=== PATIENT | female | born 1965 ===

== ENCOUNTER 2016-09-14 14:58 | Emergency (ER) | payer MEDICAID ==
[2016-09-14 15:15] VITALS: O2SAT 97
[2016-09-14] MEDS ORDERED: Sodium Chloride 0.9% 1,000 ML IV ONE (16:08)
[2016-09-14 16:46] LABS: BASO # 0.1 K/uL (0.0-0.2); EOS # 0.1 K/uL (0.0-0.7); HEMATOCRIT 42.9 % (34.0-47.0); LYMPH # 1.3 K/uL (1.0-4.3); LYMPH % 12.6 % (20.0-40.0); MEAN CELL VOLUME 84.8 fL (81.0-99.0); MEAN CORPUSCULAR HEMOGLOBIN 27.8 pg (27.0-31.0); MEAN CORPUSCULAR HGB CONC 32.8 g/dL (33.0-37.0); MEAN PLATELET VOLUME 8.4 fL (7.2-11.7); MONO # 0.2 K/uL (0.0-0.8); MONO % 2.3 % (0.0-10.0); RED CELL DISTRIBUTION WIDTH 12.9 % (11.5-14.5); WHITE BLOOD COUNT 10.3 K/uL (4.8-10.8)
--- NOTE | 2016-09-14 16:48 | C.PDOC ---
History Of Present Illness <Kristin Brooks - Last Filed: 09/14/16 18:53> <Dinesh Moreno - Last Filed: 09/14/16 19:38> 50yo female, presents to the emergency department with complaints of left-lower quadrant abdominal pain since 03:00 this morning. Associated symptoms include nausea, non-bilious/non-bloody vomiting and soft stool. Patient denies any medication to help relieve symptoms. No chest pain, cough, shortness of breath, fevers, dizziness, or any other associated symptoms. No other complaints at this time. (Kristin Brooks) History Per: Patient History/Exam Limitations: no limitations Onset/Duration Of Symptoms: Days Current Symptoms Are (Timing): Still Present Severity: Moderate Location Of Pain/Discomfort: LLQ <Kristin Brooks - Last Filed: 09/14/16 18:53> <Dinesh Moreno - Last Filed: 09/14/16 19:38> Time Seen by Provider: 09/14/16 15:32 Chief Complaint (Nursing): Abdominal Pain Past Medical History Reviewed: Historical Data, Nursing Documentation, Vital Signs - Medical History PMH: Depression, HTN Family History: States: Unknown Family Hx - Social History Hx Alcohol Use: No Hx Substance Use: No - Immunization History Hx Tetanus Toxoid Vaccination: Yes Hx Influenza Vaccination: Yes Hx Pneumococcal Vaccination: No <SaraisofyaKristin barron - Last Filed: 09/14/16 18:53> Vital Signs: Last Vital Signs Temp 98 F 09/14/16 18:44 Pulse 86 09/14/16 18:44 Resp 20 09/14/16 18:44 BP 138/82 09/14/16 18:44 Pulse Ox 97 09/14/16 18:54 Review Of Systems Except As Marked, All Systems Reviewed And Found Negative. Constitutional: Negative for: Fever, Chills Cardiovascular: Negative for: Chest Pain, Palpitations Respiratory: Negative for: Cough, Shortness of Breath Gastrointestinal: Positive for: Nausea, Vomiting, Abdominal Pain, Diarrhea. Negative for: Melena, Hematochezia, Hematemesis, Rectal Pain Musculoskeletal: Negative for: Back Pain Skin: Negative for: Rash Neurological: Negative for: Weakness, Numbness, Headache, Dizziness <SaraiKristin llanes - Last Filed: 09/14/16 18:53> Physical Exam - Physical Exam Appears: Non-toxic, No Acute Distress Skin: Warm, Dry, No Rash Head: Atraumatic, Normacephalic Eye(s): bilateral: Normal Inspection, PERRL, EOMI Nose: Normal Oral Mucosa: Moist Lips: Normal Appearing Neck: Normal ROM Cardiovascular: Rhythm Regular Respiratory: Normal Breath Sounds, No Accessory Muscle Use Gastrointestinal/Abdominal: Soft, Tenderness (LLQ, MILD), No Guarding, No Rebound Extremity: Normal ROM Neurological/Psych: Oriented x3, Normal Speech <Kristin Brooks - Last Filed: 09/14/16 18:53> ED Course And Treatment - Laboratory Results Result Diagrams: 09/14/16 16:42 09/14/16 16:42 O2 Sat by Pulse Oximetry: 97 Progress Note: Bloodwork, CT Abd/Pel and UA ordered and reviewed. Patient treated with Pepcid, IVF, Zofran and Toradol. Patient feels better, on re- evaluation, abdomen is soft and non-tender. Patient will be discharged for outpatient f/u with PMD/GI. All questions answered and pt is agreeable with plan to discharge. <Kristin Brooks - Last Filed: 09/14/16 18:53> - Laboratory Results Result Diagrams: 09/14/16 16:42 09/14/16 16:42 <Dinesh Moreno - Last Filed: 09/14/16 19:38> Disposition - Disposition Disposition Time: 18:54 <Kristin Brooks - Last Filed: 09/14/16 18:53> Counseled Patient/Family Regarding: Diagnosis - Disposition Disposition Time: 19:35 - POA Present On Arrival: None <Dinesh Moreno - Last Filed: 09/14/16 19:38> - Disposition Referrals: Deb Ttutle MD [Staff Provider] - [facility] [Outside] Disposition: HOME/ ROUTINE Condition: STABLE Prescriptions: Tamsulosin [Flomax] 0.4 mg PO DAILY #7 cap oxyCODONE/Acetaminophen [Percocet 5/325 mg Tab] 1 ea PO Q4 #20 tab Ondansetron ODT [Zofran ODT] 1 odt PO BID PRN #6 odt PRN Reason: Nausea/Vomiting Instructions: Renal Colic (ED) - Clinical Impression Clinical Impression: Renal colic - Scribe Statement The provider has reviewed the documentation as recorded by the Scribe <Kristin Brooks - Last Filed: 09/14/16 18:53> <Dinesh Moreno - Last Filed: 09/14/16 19:38> - Scribe Statement Mauri Rodas All medical record entries made by the Scribe were at my direction and personally dictated by me. I have reviewed the chart and agree that the record accurately reflects my personal performance of the history, physical exam, medical decision making, and the department course for this patient. I have also personally directed, reviewed, and agree with the discharge instructions and disposition. (Kristin Brooks) Physician Patient Turnover Patient Signed Over To: Dinesh Moreno Handoff Comments: pending CT and reevaluation <Kristin Brooks - Last Filed: 09/14/16 18:53>
[2016-09-14] MEDS ORDERED: Sodium Chloride 0.9% 1,000 ML ONE (16:50)
[2016-09-14 16:54] LABS: CHLORIDE 94 mmol/L (98-107)
[2016-09-14 16:55] LABS: POTASSIUM 3.5 mmol/L (3.6-5.2); RBC URINE 84 /hpf (0-3); SODIUM 139 mmol/L (132-148); URINE BACTERIA RARE (<OCC); URINE BILIRUBIN NEGATIVE (NEGATIVE); URINE BLOOD 2+ (NEGATIVE); URINE COLOR Yellow (YELLOW); URINE GLUCOSE (UA) NORMAL (Normal); URINE KETONE NEGATIVE (NEGATIVE); URINE LEUKOCYTE ESTERASE NEG Leu/uL (Negative); URINE PROTEIN NEGATIVE (NEGATIVE); URINE UROBILINOGEN NORMAL mg/dL (0.2-1.0); WBC URINE 3 /hpf (0-5)
[2016-09-14 16:57] LABS: BILIRUBIN,TOTAL 0.4 mg/dL (0.2-1.3); GFR AFRICAN-AMERICAN > 60
[2016-09-14 16:58] LABS: ALB/GLOB RATIO 1.1 (1.0-2.1); ALKALINE PHOSPHATASE 94 U/L (38-126); ALT/SGPT 43 U/L (9-52); AST/SGOT 47 U/L (14-36); BLOOD UREA NITROGEN 10 mg/dL (7-17); CALCIUM 9.3 mg/dl (8.6-10.4); CARBON DIOXIDE 28 mmol/L (22-30); GLUCOSE,RANDOM 123 mg/dL (65-105); TOTAL PROTEIN 8.9 g/dL (6.3-8.3)
[2016-09-14] MEDS ORDERED: Iodixanol 320 MG/ML 100 ML BOTTLE IV ONE (17:41)
[2016-09-14 18:46] VITALS: BP 138/82; PULSE 86; RESP 20; TEMP 98
--- NOTE | 2016-09-14 19:20 | CT ---
EXAM: CT Abdomen and Pelvis With Intravenous Contrast CLINICAL HISTORY: 50 years old, female; Pain and signs and symptoms; Vomiting; Abdominal pain; Generalized; Additional info: Abd pain TECHNIQUE: Axial computed tomography images of the abdomen and pelvis with intravenous contrast. Left CT exam was performed using one or more of the following dose reduction techniques: automated exposure control, adjustment of the mA and/or kV according to patient size, and/or use of iterative reconstruction technique. Coronal and sagittal reformatted images were created and reviewed. CONTRAST: 100 mL of [id number] administered intravenously. EXAM DATE/TIME: 09/14/2016 4:34 PM COMPARISON: No relevant prior studies available. FINDINGS: LOWER THORAX: Incidental 1.5 x 0.5 cm right breast nodule, image 14/series 2, which has well-defined margins and is likely solid. This could represent a lymph node but it is indeterminate on this exam. Recommend further evalation with mammography and/or breast ultrasound, on a nonemergent basis. ABDOMEN: LIVER: Fatty infiltration of the liver. GALLBLADDER AND BILE DUCTS: No CT evidence of acute cholecystitis. No evidence of significant biliary ductal dilatation. PANCREAS: No CT evidence of acute pancreatitis. SPLEEN: No acute abnormality of the spleen identified. ADRENALS: No acute abnormality of the adrenal glands identified. KIDNEYS AND URETERS: 5 mm obstructing stone in the left proximal ureter, image 80/series 3, causing moderate left hydroureteronephrosis, as well as left urothelial thickening.. Tiny, nonobstructing right renal stone. Multiple low density lesions in the kidneys bilaterally, most likely representing cysts. The largest of these measures 1.6 cm. STOMACH AND BOWEL: No acute abnormality of the stomach or duodenum identified. No evidence of small bowel obstruction. No acute abnormality of the colon identified. APPENDIX: Appendix is seen, and is within normal limits in appearance. PELVIS: BLADDER: No acute abnormality of the bladder identified. REPRODUCTIVE:No acute abnormality of the reproductive organs is seen. No acute abnormality of the uterus identified. No evidence of large adnexal masses. ABDOMEN and PELVIS: INTRAPERITONEAL SPACE: No evidence of free intraperitoneal air or fluid. BONES/JOINTS: No acute fractures or other acute bony abnormality noted. SOFT TISSUES: No acute abnormality of the visualized soft tissues is seen. VASCULATURE: No evidence of abdominal aortic aneurysm. No evidence of periaortic hemorrhage. LYMPH NODES: No evidence of diffuse pathologic lymphadenopathy. IMPRESSION: - 5 mm obstructing stone in the left proximal ureter. - Otherwise, no evidence of significant acute process. - Incidental breast nodule, as described. See recommendations above. - Fatty infiltration of the liver. - See above for remaining findings.
== END 2016-09-14 19:52 | disposition home or self-care (01) ==
LOC: C.ER 14:58
DX: N13.2 Hydronephrosis with renal and ureteral calculous obstruction (principal)
CPT/HCPCS: 74177; 80053; 81001; 83690; 85025; 96361; 96374; 96375; 99285; J1885; J2405; J7040; Q9967

== ENCOUNTER 2016-10-04 17:51 | Emergency (ER) | payer MEDICAID ==
[2016-10-04 17:56] VITALS: TEMP 98
[2016-10-04 18:22] LABS: RBC URINE 1 /hpf (0-3); URINE BACTERIA OCC (<OCC); URINE BILIRUBIN NEGATIVE (NEGATIVE); URINE BLOOD 3+ (NEGATIVE); URINE COLOR Straw (YELLOW); URINE GLUCOSE (UA) NORMAL (Normal); URINE KETONE NEGATIVE (NEGATIVE); URINE LEUKOCYTE ESTERASE NEG Leu/uL (Negative); URINE PROTEIN NEGATIVE (NEGATIVE); URINE UROBILINOGEN NORMAL mg/dL (0.2-1.0); WBC URINE 1 /hpf (0-5)
[2016-10-04] MEDS ORDERED: Sodium Chloride 0.9% 1,000 ML IV STA (18:30)
--- NOTE | 2016-10-04 18:33 | C.PDOC ---
History Of Present Illness 50 y/o F c PMHx kidney stones p/w L flank pain x 3 weeks. Patient was in this ER for the same pain, found to have 5mm obstructing stone in L ureter and discharged on Percocet. Also taking ibuprofen. Pain has persisted. She denies fever, vomiting, dyspnea. She followed up with PMD and is awaiting follow up with urology. Time Seen by Provider: 10/04/16 18:23 Chief Complaint (Nursing): Abdominal Pain Past Medical History Vital Signs: Last Vital Signs Temp 98.0 F 10/04/16 17:55 Pulse 71 10/04/16 17:55 Resp 19 10/04/16 17:55 BP 146/90 10/04/16 17:55 Pulse Ox 99 10/04/16 20:19 - Medical History PMH: Depression, HTN Family History: States: Unknown Family Hx - Social History Hx Alcohol Use: No Hx Substance Use: No - Immunization History Hx Tetanus Toxoid Vaccination: Yes Hx Influenza Vaccination: Yes (3 months ago) Hx Pneumococcal Vaccination: No Review Of Systems Except As Marked, All Systems Reviewed And Found Negative. Constitutional: Negative for: Fever Cardiovascular: Negative for: Chest Pain Respiratory: Negative for: Shortness of Breath Physical Exam - Physical Exam Additional Physical Exam Comments: Constitutional: No acute distress. Head: Normocephalic. Atraumatic. Eyes: PERRL. ENT: Moist mucous membranes. Neck: Supple. Cardiovascular: Regular rate. Radial pulse 2+ bilaterally. Chest: No tenderness. Respiratory: Clear to auscultation bilaterally. GI: Soft. Nontender. Nondistended. Back: L CVA tenderness. Musculoskeletal: No tenderness or swelling of extremities. Skin: No rash. Neurologic: Alert, no focal deficit. ED Course And Treatment - Laboratory Results Result Diagrams: 10/04/16 18:38 10/04/16 18:38 O2 Sat by Pulse Oximetry: 99 Medical Decision Making Medical Decision Making: Morphine for pain, recheck CT. CT Abdomen/Pelvis EXAM: CT Abdomen and Pelvis Without Intravenous Contrast CLINICAL HISTORY: The patient is a 50 years old, female; Signs and symptoms; Other: Left sided flank pain; Patient HX: History of kidney stones; Additional info: L flank pain Facility exam id and description: [id number] abd pelvis w/o po or iv cont TECHNIQUE: Axial computed tomography images of the abdomen and pelvis without intravenous contrast. This CT exam was performed using one or more of the following dose reduction techniques : automated exposure control, adjustment of the mA and/or kV according to patient size, and/ or use of iterative reconstruction technique. Coronal and sagittal reformatted images were created and reviewed. COMPARISON: CT - ABD PELVIS IV CONTRAST ONLY 09/14/2016 6:29:00 PM FINDINGS: LOWER THORAX: No acute findings. ABDOMEN: LIVER: Mild fatty infiltration of the liver with some focal fatty sparing around the gallbladder fossa. GALLBLADDER AND BILE DUCTS: Unremarkable. No calcified stones. No ductal dilation. PANCREAS: Unremarkable. No ductal dilation. SPLEEN: Unremarkable. No splenomegaly. ADRENALS: Unremarkable. No mass. KIDNEYS AND URETERS: Moderate left obstructive uropathy, secondary to a 5.0 x 4.3 mm calculus within the distal left pelvic ureter, approximately 2 cm above the left ureterovesical junction. The calculus is seen on image 74 of series 2. The calculus may be the same calculus that was previously seen in the proximal left ureter on the prior CT exam. A tiny nonobstructing calculus is additionally seen in the mid-lower pole right kidney on image 41 of series 2. There is a 1.8 x 1.8 cm hypodense mass, likely a cyst, in the lateral cortex mid-pole left kidney. STOMACH AND BOWEL: Unremarkable. No obstruction. No mucosal thickening. APPENDIX: No findings to suggest acute appendicitis. PELVIS: BLADDER: Unremarkable. No stones. REPRODUCTIVE: Unremarkable as visualized. ABDOMEN and PELVIS: INTRAPERITONEAL SPACE: Unremarkable. No free air. No significant fluid collection. BONES/JOINTS: No acute fracture. No dislocation. SOFT TISSUES: A small periumbilical midline ventral hernia is present, containing fat only. VASCULATURE: Unremarkable. No abdominal aortic aneurysm. LYMPH NODES: Unremarkable. No enlarged lymph nodes. IMPRESSION: 1. Moderate left obstructive uropathy, secondary to a 5.0 x 4.3 mm calculus within the distal left pelvic ureter, approximately 2 cm above the left ureterovesical junction. The calculus is seen on image 74 of series 2. The calculus may be the same calculus that was previously seen in the proximal left ureter on the prior CT exam. 2. A tiny nonobstructing calculus is additionally seen in the mid-lower pole right kidney on image 41 of series 2. 3. There is a 1.8 x 1.8 cm hypodense mass, likely a cyst, in the lateral cortex mid-pole left kidney. 4. Mild fatty infiltration of the liver with some focal fatty sparing around the gallbladder fossa. 5. A small periumbilical midline ventral hernia is present, containing fat only. Patient's pain controlled. CT shows stone without movement. Discussed case with Dr. Yoo, urology plant operations vice president who states patient to call him Thursday for appointment. In the meantime, continue Percocet, Ibuprofen, Flomax, 1 dose ceftriaxone here and Ceftin BID at home, lemondae half gallon per day, and KUB obtained at his request prior to discharge. Disposition Discussed With Dr.: Aleksandr Yoo Doctor Will See Patient In The: Office - Disposition Referrals: Aleksandr Yoo MD [Staff Provider] - Disposition Time: 19:30 Condition: STABLE Additional Instructions: Call Dr. Yoo's office on Thursday after 10:30 AM. Prescriptions: Cefuroxime Axetil [Ceftin] 10 ml PO BID #140 ml Tamsulosin [Flomax] 0.4 mg PO DAILY #14 cap oxyCODONE/Acetaminophen [Percocet 5/325 mg Tab] 1 tab PO Q6 #16 tab Ondansetron ODT [Zofran ODT] 4 mg PO Q8 #12 odt Instructions: Kidney Stones (ED) - Clinical Impression Clinical Impression: Kidney stone
[2016-10-04] MEDS ORDERED: Morphine 4 MG/ML VIAL ONE (18:41)
[2016-10-04] MEDS ORDERED: Sodium Chloride 0.9% 1,000 ML ONE (18:41)
[2016-10-04 18:43] LABS: BASO # 0.2 K/uL (0.0-0.2); EOS # 0.7 K/uL (0.0-0.7); EOS % 8.3 % (0.0-4.0); HEMATOCRIT 39.6 % (34.0-47.0); MEAN CORPUSCULAR HEMOGLOBIN 28.1 pg (27.0-31.0); MEAN CORPUSCULAR HGB CONC 33.1 g/dL (33.0-37.0); MEAN PLATELET VOLUME 8.9 fL (7.2-11.7); MONO # 0.5 K/uL (0.0-0.8); MONO % 6.8 % (0.0-10.0); RED CELL DISTRIBUTION WIDTH 13.2 % (11.5-14.5); WHITE BLOOD COUNT 7.9 K/uL (4.8-10.8)
[2016-10-04 18:51] LABS: INR 1.1
[2016-10-04 18:56] LABS: CHLORIDE 99 mmol/L (98-107)
[2016-10-04 18:57] LABS: POTASSIUM 3.7 mmol/L (3.6-5.2); SODIUM 139 mmol/L (132-148)
[2016-10-04 18:59] LABS: ALB/GLOB RATIO 1.4 (1.0-2.1); AST/SGOT 40 U/L (14-36); BILIRUBIN,TOTAL 0.3 mg/dL (0.2-1.3); BLOOD UREA NITROGEN 13 mg/dL (7-17); CARBON DIOXIDE 26 mmol/L (22-30); GFR AFRICAN-AMERICAN > 60; TOTAL PROTEIN 7.9 g/dL (6.3-8.3)
[2016-10-04 19:00] LABS: ALKALINE PHOSPHATASE 85 U/L (38-126); ALT/SGPT 43 U/L (9-52); CALCIUM 9.3 mg/dl (8.6-10.4); GLUCOSE,RANDOM 91 mg/dL (65-105)
[2016-10-04] MEDS ORDERED: cefTRIAXone IV 1 gm in Dextros 50 ML IVPB ONE (19:48)
[2016-10-04 20:57] VITALS: BP 131/78; PULSE 74; RESP 16; O2SAT 98
--- NOTE | 2016-10-04 22:32 | RAD ---
HISTORY: KUB, kidney stone COMPARISON: No prior. FINDINGS: BOWEL: Normal. No obstruction. No free air. BONES: Mild degenerative spondylosis lumbosacral spine OTHER FINDINGS: Multiple tiny calcifications seen overlying the inferior aspect true pelvis bilaterally likely representing calcified pelvic phleboliths however the possibility of a small UVJ or bladder calculus not excluded IMPRESSION: Multiple tiny calcifications seen overlying the inferior aspect true pelvis bilaterally likely representing calcified pelvic phleboliths however the possibility of a small UVJ or bladder calculus not excluded
--- NOTE | 2016-10-05 12:22 | CT ---
PROCEDURE: CT Abdomen and Pelvis . HISTORY: L flank pain COMPARISON: 09/14/16 TECHNIQUE: Contiguous axial images of the abdomen and pelvis.. No contrast given. Coronal and Sagittal reformats generated. Radiation dose: Total exam DLP = 571.34 mGy-cm. This CT exam was performed using one or more of the following dose reduction techniques: Automated exposure control, adjustment of the mA and/or kV according to patient size, and/or use of iterative reconstruction technique. FINDINGS: LOWER THORAX: Small hiatal hernia with slight wall thickening of the distal esophagus could be due to protrusion gastric mucosa. Esophagitis or other intrinsic/invasive wall lesion not excluded. Mild dependent atelectasis both posterior lower lung zones. LIVER: Mild fatty infiltration No gross lesion or ductal dilatation. GALLBLADDER AND BILE DUCTS: Unremarkable. PANCREAS: Unremarkable. No mass. No ductal dilatation. SPLEEN: Unremarkable. No splenomegaly. ADRENALS: Unremarkable. KIDNEYS AND URETERS: Left-sided hydronephrosis secondary to the calculus distal left pelvic ureter measuring approximately 5 mm . This calculus apparently has migrated inferiorly than was previously seen in the proximal left ureter on CT scan 09/14/2016. Moderate left-sided hydronephrosis. Re- demonstrated are 2 and possibly a 3rd cyst midpole left kidney unchanged from prior study punctate calcification lower pole right kidney BLADDER: Grossly unremarkable. REPRODUCTIVE: Unremarkable. APPENDIX: Unremarkable. BOWEL: Unremarkable. No obstruction. No gross mural thickening. PERITONEUM: No fluid collection. No free air. Small mesenteric lymph node in right anterior aspect of the pelvis LYMPH NODES: Unremarkable. No enlarged lymph nodes. Tiny fat containing umbilical hernia VASCULATURE: Unremarkable. No aortic aneurysm. BONES: No fracture or destructive lesion. OTHER FINDINGS: None. IMPRESSION: Left-sided hydronephrosis secondary to the calculus distal left pelvic ureter measuring approximately 5 mm . This calculus apparently has migrated inferiorly than was previously seen in the proximal left ureter on CT scan 09/14/2016. Moderate left-sided hydronephrosis. Re- demonstrated are 2 and possibly a 3rd cyst midpole left kidney unchanged from prior study The punctate calcification lower pole right kidney
== END 2016-10-04 20:57 | disposition home or self-care (01) ==
LOC: C.ER 17:51
DX: N20.2 Calculus of kidney with calculus of ureter (principal)
CPT/HCPCS: 74000; 74176; 80053; 81001; 84703; 85025; 85610; 85730; 86850; 86900; 87086; 96361; 96365; 96375; 99285; J0696; J2270; J7040

== ENCOUNTER 2017-06-03 19:54 | Emergency (ER) | payer MEDICAID ==
[2017-06-03 20:27] VITALS: TEMP 99.4
--- NOTE | 2017-06-03 20:42 | C.PDOC ---
History Of Present Illness 51 year old female presents to the ED with complaints of left wrist pain. She states she was opening window and the window closed shut on her left wrist, the plastic part broke her bracelet. She states pain is worse with movement. She is right hand dominant. Denies any numbness or weakness. Time Seen by Provider: 06/03/17 20:30 Chief Complaint (Nursing): Upper Extremity Problem/Injury History Per: Patient History/Exam Limitations: no limitations Onset/Duration Of Symptoms: Days Exacerbating Factor(s): Strenuous Use Of Affected Area, Movement Past Medical History Reviewed: Historical Data, Nursing Documentation, Vital Signs Vital Signs: Last Vital Signs Temp 99.4 F 06/03/17 20:18 Pulse 82 06/03/17 20:18 Resp 20 06/03/17 20:18 BP 165/100 H 06/03/17 20:18 Pulse Ox 95 06/03/17 20:45 - Medical History PMH: Depression, HTN Surgical History: No Surg Hx Family History: States: Unknown Family Hx - Social History Hx Alcohol Use: No Hx Substance Use: No - Immunization History Hx Tetanus Toxoid Vaccination: Yes Hx Influenza Vaccination: Yes (3 months ago) Hx Pneumococcal Vaccination: No Review Of Systems Except As Marked, All Systems Reviewed And Found Negative. Musculoskeletal: Positive for: Hand Pain Physical Exam - Physical Exam Appears: Non-toxic, No Acute Distress Skin: Warm, Dry, Other (superficial irregular abrasion to dorsal left wrist) Head: Atraumatic, Normacephalic Eye(s): bilateral: Normal Inspection Neck: Normal ROM Chest: Symmetrical Extremity: Other (Left wrist: tenderness and mild swelling to dorsal radial wrist. Normal pulse. Limited ROM secondary to pain. No tenderness to hands or digits. ) Pulses: Left Radial: Normal Neurological/Psych: Oriented x3, Normal Speech ED Course And Treatment O2 Sat by Pulse Oximetry: 95 Medical Decision Making Medical Decision Making: Impression: Wrist injury Plan: * Motrin given in triage * Ice pack * Xray Progress: Xray viewed by me showing no acute fracture or dislocation, mild soft tissue swelling Velcro volar splint applied by CP Patient advised to take Tylenol or Motrin as needed. Recommend to apply ice and then to follow up with ortho if pain persists. Disposition Counseled Patient/Family Regarding: Diagnosis, Need For Followup, Rx Given - Disposition Referrals: Caty Birch MD [Medical Doctor] - Disposition: HOME/ ROUTINE Disposition Time: 20:56 Condition: GOOD Forms: [facility] (Bengali) Print Language: TURKISH - POA Present On Arrival: None - Clinical Impression Clinical Impression: Wrist contusion
[2017-06-03 21:11] VITALS: BP 129/81; PULSE 70; RESP 16
[2017-06-03 21:23] VITALS: O2SAT 95
--- NOTE | 2017-06-04 09:28 | RAD ---
PROCEDURE: Left Wrist Radiographs. HISTORY: pain s.p injury COMPARISON: None. FINDINGS: BONES: Normal. No fracture. JOINTS: Normal. No dislocation. SOFT TISSUES: Mild soft tissue swelling/subcutaneous increased density radial side of carpus OTHER FINDINGS: None. IMPRESSION: No fracture or dislocation. Radial sided soft tissue swelling
== END 2017-06-03 21:09 | disposition home or self-care (01) ==
LOC: C.ER 19:54
DX: S60.212A Contusion of left wrist, initial encounter (principal); W22.8XXA Striking against or struck by other objects, initial encounter

== ENCOUNTER 2018-01-03 07:53 | Emergency (ER) | payer MEDICAID ==
[2018-01-03 07:56] VITALS: BP 141/82; PULSE 82; RESP 18; TEMP 98.9; O2SAT 99
--- NOTE | 2018-01-03 08:13 | C.PDOC ---
History Of Present Illness 52 year old female presents to ED for evaluation of worsening right eye stye for the last 3 days, but severe this morning. Pt states onset after exposure to cats. She reports increasing redness, swelling, and new onset of purulent discharge today. +surrounding redness. Denies eyeball pain, foreign body sensation, or vision change. History of "borderline" diabetes. WORSENING R EYE STYE X 3 DAYS, SEVERE THIS MORNING. PS ONSET AFTER EXPOSURE TO CATS. INCREASING REDNESS, SWELLING NEW ONSET PURULENT DC TODAY. +SURROUNDING REDNESS. DENIES EYEBALL PAIN, FB SENSATION OR VISION CHANGE. HO "BORDERLINE" DM Time Seen by Provider: 01/03/18 08:04 Chief Complaint (Nursing): Eye Problem History Per: Patient History/Exam Limitations: no limitations Onset/Duration Of Symptoms: Days Current Symptoms Are (Timing): Still Present Past Medical History Reviewed: Historical Data, Nursing Documentation, Vital Signs Vital Signs: Last Vital Signs Temp 98.9 F 01/03/18 07:55 Pulse 82 01/03/18 07:55 Resp 18 01/03/18 07:55 BP 141/82 01/03/18 07:55 Pulse Ox 99 01/03/18 08:46 - Medical History PMH: Depression, HTN Family History: States: Unknown Family Hx - Social History Hx Alcohol Use: No Hx Substance Use: No - Immunization History Hx Tetanus Toxoid Vaccination: Yes (one year ago) Hx Influenza Vaccination: Yes (3 months ago) Hx Pneumococcal Vaccination: No Review Of Systems Except As Marked, All Systems Reviewed And Found Negative. Constitutional: Negative for: Fever, Chills Eyes: Positive for: Eyelid Inflammation, Redness, Other (right eye stye). Negative for: Pain, Vision Change Physical Exam - Physical Exam Appears: Non-toxic, No Acute Distress Skin: Normal Color, Warm, Dry Head: Atraumatic, Normacephalic Eye(s): right: Eyelid Inflammation, Other (large stye to right lower inner lid with purulent discharge and scant cellulitis to right lower periorbital area with minimal local edema. Eye redness with watery discharge), left: Normal Inspection Oral Mucosa: Moist Neck: Normal ROM, Supple Cardiovascular: Rhythm Regular Respiratory: Normal Breath Sounds, No Rales, No Rhonchi, No Wheezing Extremity: Normal ROM Neurological/Psych: Oriented x3, Normal Speech ED Course And Treatment O2 Sat by Pulse Oximetry: 99 (RA) Pulse Ox Interpretation: Normal - Physician Consult Information Time Consulting Physician Contacted: 08:16 Physician Contacted: Jason Huizar Outcome Of Conversation: AWARE OF ER FINDINGS. ADVISES OCUFLOX, AUGMENTIN, WARM COMPRESSES FU EYE 1 WEEK. NO NEED FOR I&D Medical Decision Making Medical Decision Making: Plan: Motrin Augmentin Disposition Counseled Patient/Family Regarding: Diagnosis, Need For Followup, Rx Given - Disposition Referrals: Jason Huizar MD [Staff Provider] - Disposition: HOME/ ROUTINE Disposition Time: 08:19 Condition: IMPROVED Prescriptions: Amoxicillin/Clavulanate [Augmentin 875 MG-125 MG] 1 tab PO BID #14 tab Ibuprofen [Motrin] 600 mg PO Q6 #30 tab Ofloxacin Ophth 0.3% [Ocuflox Ophth 0.3%] 2 drop OD Q3 #1 bottle Instructions: Stye (Hordeolum), Cellulitis (Skin Infection), Child (DC) Forms: [facility] (Armenian), Work Excuse - Clinical Impression Clinical Impression: Conjunctivitis, Stye - Scribe Statement The provider has reviewed the documentation as recorded by the Scribe KP All medical record entries made by the Scribe were at my direction and personally dictated by me. I have reviewed the chart and agree that the record accurately reflects my personal performance of the history, physical exam, medical decision making, and the department course for this patient. I have also personally directed, reviewed, and agree with the discharge instructions and disposition.
[2018-01-03] MEDS ORDERED: Amoxicillin-Clav 875-125 mg Tab PO STA (08:15)
[2018-01-03] MEDS ORDERED: Amoxicillin-Clav 875-125 mg Tab PO ONE (08:23)
== END 2018-01-03 08:44 | disposition home or self-care (01) ==
LOC: C.ER 07:53
DX: H00.022 Hordeolum internum right lower eyelid (principal); H10.9 Unspecified conjunctivitis